=== PATIENT | male | born 1960 | race Caucasian/White ===

== ENCOUNTER 2018-08-18 12:46 | Emergency (ER) | payer MEDICARE, OTHER ==
[~2018-08-18] VITALS: Ht 182.9 cm; Wt 81.8 kg
[~2018-08-18 12:46] MED LIST: /ADVA50050; /MOXI40TA; /TIOT18INH; ACET65TA; BABY81CH; CEPACOL; No Historical Meds; PRED20TA; REME15TA; TRAZ50TA; TUMS500C; combivent
[2018-08-18 13:28] LABS: BASO % 0.6 % (0.0-1.0); EOS # 0.3 10^3/uL (0.0-0.50); EOS % 4.8 % (0.0-3.0); HEMATOCRIT 43.3 % (42.0-52.0); HEMOGLOBIN 14.4 g/dl (13.5-17.5); LYMPH % 29.3 % (24.0-44.0); MEAN CORPUSCULAR HEMOGLOBIN 30.4 pg (27.0-33.0); MEAN CORPUSCULAR HGB CONC 33.3 g/dl (32.0-36.5); MEAN CORPUSCULAR VOLUME 91.4 fl (80.0-96.0); MONO # 0.7 10^3/uL (0.0-0.8); MONO % 9.8 % (0.0-5.0); NEUTROPHILS # 3.8 10^3/uL (1.8-7.7); NEUTROPHILS % 55.1 % (36.0-66.0); PLATELET COUNT, AUTOMATED 303 10^3/uL (150-450); RED BLOOD COUNT 4.74 10^6/uL (4.30-6.10); WHITE BLOOD COUNT 6.9 10^3/uL (4.0-10.0)
[2018-08-18 13:40] LABS: PROTHROMBIN TIME 13.3 SECONDS (12.1-14.4)
[2018-08-18 13:41] LABS: PARTIAL THROMBOPLASTIN TIME 28.5 SECONDS (25.4-37.6)
[2018-08-18 14:01] LABS: ALBUMIN 4.2 GM/DL (3.2-5.2); ALT/SGPT 23 U/L (12-78); BILIRUBIN,DIRECT 0.2 MG/DL (0.0-0.2); BILIRUBIN,TOTAL 0.5 MG/DL (0.2-1.0); BLOOD UREA NITROGEN 12 MG/DL (7-18); CALCIUM LEVEL 8.8 MG/DL (8.5-10.1); CARBON DIOXIDE LEVEL 29 MEQ/L (21-32); CHLORIDE LEVEL 106 MEQ/L (98-107); CK-MB VALUE MASS < 1.0 NG/ML (<3.6); CPK CREATINE PHOSPHOKINASE 77 U/L (39-308); CREATININE FOR GFR 0.99 MG/DL (0.70-1.30); FREE T4 1.12 NG/DL (0.76-1.46); GLOMERULAR FILTRATION RATE > 60.0 (>56); GLUCOSE, FASTING 84 MG/DL (70-100); LIPASE 199 U/L (73-393); POTASSIUM SERUM 4.7 MEQ/L (3.5-5.1); SODIUM LEVEL 140 MEQ/L (136-145); TOTAL PROTEIN 7.2 GM/DL (6.4-8.2); TROPONIN I < 0.02 NG/ML (< 0.10)
--- NOTE | 2018-08-18 14:01 | REP ---
CHEST X-RAY: Two views. HISTORY: Chest pain. COMPARISON STUDY: November 03, 2012. FINDINGS: There is a pleural-based nodular opacity at the left apex 2.6 cm in greatest diameter which is unchanged from prior studies done in 2012. It is fairly well visible on the lower cuts from the cervical spine CT study November 03, 2012. There are surgical clips in the left subclavicular region. There are large bullae in the upper lobes bilaterally unchanged from multiple prior radiographs. Heart is not enlarged. EKG electrodes are seen. Pleural angles are sharp. No significant bony abnormality is seen. IMPRESSION: Bilateral upper lobe bullous change consistent with emphysema. Stable 2.6 cm nodular density in the left apex unchanged. No acute disease. Electronically Signed by Haja Fernández MD 08/18/2018 06:26 P
[2018-08-18 14:23] LABS: C REACTIVE PROTEIN QUANTITATIV < 0.30 MG/DL (0.00-0.30)
[2018-08-18 14:51] LABS: ERYTHROCYTE SEDIMENTATION RATE 5 mm/hr (0-20)
[2018-08-18] MEDS ORDERED: ASPI1TAB PO (16:05)
[2018-08-18 16:16] VITALS: BP 152/76
--- NOTE | 2018-08-18 18:50 | ECGEPIP ---
Stationary ECG Study [facility] - ED Test Date: 2018-08-18 Pat Name: BRENNEN LAUREN JR Department: Room: - Gender: M [employer] Operator: : 1960 Requested By: ERIN Bishop Order Number: [id number] Reading MD: Daniel Kc Measurements Intervals [place] Rate: 56 P: 38 ID: [id number] QRS: 11 QRSD: 104 T: 41 QT: 407 QTc: 394 Interpretive Statements SINUS BRADYCARDIA Electronically Signed On 08-18-2018 18:49:44 EST by Daniel Kc
--- NOTE | 2018-08-20 11:05 | ED PDOC ---
Post-Departure Follow-Up dr bob faxed formal report of cxr for fu Amy Pfeiffer MD Aug 20, 2018 11:05
== END 2018-08-18 16:18 | disposition home or self-care (01) ==
LOC: M ED 12:46
DX: G54.0 Brachial plexus disorders (principal); R00.1 Bradycardia, unspecified; F31.9 Bipolar disorder, unspecified; Z87.891 Personal history of nicotine dependence; Z79.82 Long term (current) use of aspirin

== ENCOUNTER 2021-06-13 15:31 | Emergency (ER) | payer MEDICARE ==
[~2021-06-13] VITALS: Ht 185.4 cm; Wt 82.9 kg
[~2021-06-13 15:31] MED LIST changes: -/ADVA50050; -/MOXI40TA; -/TIOT18INH; +ADVA1AER2; +ASPI81TA26 PO; +AVEL1TAB2; +SPIR1CAP
--- NOTE | 2021-06-13 17:35 | REP ---
INDICATION: covid COMPARISON: 08/18/2018 TECHNIQUE: Portable AP view of the chest FINDINGS: COPD/emphysematous changes are noted. Cardiac silhouette is normal. No consolidation, effusion, or pneumothorax. Skeletal structures are intact. IMPRESSION: Chronic emphysematous disease. No acute cardiopulmonary process appreciated. <Electronically signed by Be Flores > 06/13/21 [id number]
[2021-06-13 18:04] VITALS: BP 145/79
--- NOTE | 2021-06-14 15:55 | ECGEPIP ---
[facility] - ED Test Date: 2021-06-13 Pat Name: BRENNEN LAUREN Department: Room: - Gender: Male [employer] Superintendent: ED : 1960 Requested By: Marielle Clifton Order Number: [id number] Reading MD: Marielle Clifton Measurements Intervals [place] Rate: 59 P: 84 [place]: 142 QRS: 11 QRSD: 90 T: 34 QT: 428 QTc: 423 Interpretive Statements Sinus bradycardia with sinus arrhythmia baseline artifact may affect interpretation similar 08/18/18 Electronically Signed on 06-14-2021 15:54:31 EST by Marielle Clifton
== END 2021-06-13 18:09 | disposition home or self-care (01) ==
LOC: M ED 15:31
DX: U07.1 COVID-19 (principal); R00.1 Bradycardia, unspecified; J44.9 Chronic obstructive pulmonary disease, unspecified; I48.91 Unspecified atrial fibrillation; F31.9 Bipolar disorder, unspecified

== ENCOUNTER 2021-06-17 11:20 | Outpatient (CLI) | payer MEDICARE ==
[~2021-06-17] VITALS: Ht 185.4 cm; Wt 79.0 kg
[~2021-06-17 11:20] MED LIST changes: +ACETAMINOPHEN TAB 650MG DOSE (2X325MG) PO PRN; +ALBUTEROL 90 MCG/ACT 8GM HFA INHALER INH PRN; +ALBUTEROL SULFATE 2.5 MG/0.5 ML INH NEB SOLN INH PRN; +CASIRIVIMAB/IMDEVIMAB 1,200 MG in NS 250 ML IV ONE; +EPINEPHrine INJ 1 MG/ML 1ML AMP IM PRN; +NS 1,000 ML IV SCH; +diphenhydrAMINE 50MG/ML VIAL (J1200) IV PRN; +methylPREDNISolone 125MG 2ML VIAL IV PRN
[2021-06-17 11:56] VITALS: BP 154/79
[2021-06-17 12:26] VITALS: BP 131/70
[2021-06-17 12:56] VITALS: BP 134/70
[2021-06-17 13:56] VITALS: BP 147/71
== END 2021-06-17 13:56 | disposition home or self-care (01) ==
LOC: M OPCLI4PR 11:20
PROVIDERS: ATTEND Physician Assistant
DX: U07.1 COVID-19 (principal)

== ENCOUNTER 2021-07-09 04:35 | Emergency (ER) | payer MEDICARE, OTHER ==
[~2021-07-09] VITALS: Ht 185.4 cm; Wt 84.3 kg
[~2021-07-09 04:35] MED LIST changes: -ACETAMINOPHEN TAB 650MG DOSE (2X325MG) PO PRN; -ALBUTEROL 90 MCG/ACT 8GM HFA INHALER INH PRN; -ALBUTEROL SULFATE 2.5 MG/0.5 ML INH NEB SOLN INH PRN; -CASIRIVIMAB/IMDEVIMAB 1,200 MG in NS 250 ML IV ONE; -EPINEPHrine INJ 1 MG/ML 1ML AMP IM PRN; -NS 1,000 ML IV SCH; -diphenhydrAMINE 50MG/ML VIAL (J1200) IV PRN; -methylPREDNISolone 125MG 2ML VIAL IV PRN
[2021-07-09] MEDS ORDERED: BACI500O21 TOP (05:18)
[2021-07-09] MEDS ORDERED: CEPH500T PO (05:18)
[2021-07-09 05:51] VITALS: BP 138/98
== END 2021-07-09 05:55 | disposition home or self-care (01) ==
LOC: M ED 04:35
DX: L03.114 Cellulitis of left upper limb (principal); L03.113 Cellulitis of right upper limb; T33.521A Superficial frostbite of right hand, initial encounter; T33.522A Superficial frostbite of left hand, initial encounter; I48.91 Unspecified atrial fibrillation; J44.9 Chronic obstructive pulmonary disease, unspecified; F17.200 Nicotine dependence, unspecified, uncomplicated; F31.9 Bipolar disorder, unspecified; Y92.009 Unspecified place in unspecified non-institutional (private) residence as the place of occurrence of the external cause; Y93.9 Activity, unspecified; Y99.9 Unspecified external cause status

== ENCOUNTER 2021-09-28 15:57 | Emergency (ER) | payer MEDICARE ==
[~2021-09-28] VITALS: Ht 182.9 cm; Wt 89.9 kg
[~2021-09-28 15:57] MED LIST changes: +BACI500O21 TOP; +CEPH500T PO
[2021-09-28] MEDS ORDERED: QUET100T2 PO (16:02)
[2021-09-28] MEDS ORDERED: DIVA500T94 PO (16:02)
[2021-09-28] MEDS ORDERED: HYDR12CA PO (17:31)
[2021-09-28 20:34] LABS: BASO # 0.1 10^3/uL (0.0-0.2); BASO % 0.9 % (0.0-1.0); EOS # 0.6 10^3/uL (0.0-0.5); EOS % 5.6 % (0.0-3.0); HEMATOCRIT 39.9 % (42.0-52.0); HEMOGLOBIN 12.6 g/dl (13.5-17.5); LYMPH # 2.4 10^3/uL (1.5-5.0); LYMPH % 22.2 % (24.0-44.0); MEAN CORPUSCULAR HEMOGLOBIN 31.3 pg (27.0-33.0); MEAN CORPUSCULAR HGB CONC 31.6 g/dl (32.0-36.5); MONO # 1.3 10^3/uL (0.0-0.8); MONO % 12.3 % (2.0-8.0); NEUTROPHILS # 6.3 10^3/uL (1.5-8.5); NEUTROPHILS % 57.6 % (36.0-66.0); PLATELET COUNT, AUTOMATED 279 10^3/uL (150-450); RED BLOOD COUNT 4.03 10^6/uL (4.30-6.10); WHITE BLOOD COUNT 10.9 10^3/uL (4.0-10.0)
[2021-09-28] MEDS ORDERED: ISOVUE-370 76% 100ML VIAL As Ordered ONE (21:02)
[2021-09-28 21:07] LABS: CK-MB VALUE MASS 1.7 NG/ML (<3.6); MB/CK RELATIVE INDEX 1.03 (< OR =4)
[2021-09-28 21:19] LABS: ALBUMIN 3.6 GM/DL (3.2-5.2); BILIRUBIN,DIRECT 0.1 MG/DL (0.0-0.2); BILIRUBIN,TOTAL 0.2 MG/DL (0.2-1.0); TOTAL PROTEIN 6.7 GM/DL (6.4-8.2)
[2021-09-28 21:57] LABS: RSV AMPLIFICATION NEGATIVE (NEGATIVE)
[2021-09-28] MEDS ORDERED: FUROSEMIDE 20 MG TAB PO ONE (23:00)
[2021-09-28 23:07] VITALS: BP 140/63
[2021-09-28] MEDS ORDERED: LASI20TA3 PO (23:56)
== END 2021-09-29 00:07 | disposition home or self-care (01) ==
LOC: M ED 15:57
DX: R22.43 Localized swelling, mass and lump, lower limb, bilateral (principal); I10 Essential (primary) hypertension; Z76.0 Encounter for issue of repeat prescription; R79.1 Abnormal coagulation profile; R79.89 Other specified abnormal findings of blood chemistry; R00.1 Bradycardia, unspecified; J94.8 Other specified pleural conditions; I48.91 Unspecified atrial fibrillation; R56.9 Unspecified convulsions; J44.9 Chronic obstructive pulmonary disease, unspecified; Z87.891 Personal history of nicotine dependence; Z79.899 Other long term (current) drug therapy
CPT/HCPCS: 36415; 71046; 71275; 80047; 80076; 82550; 82553; 83690; 83880; 84484; 85025; 85379; 87631; 93005; 93970; 99284; Q9967

== ENCOUNTER → 2022-03-03 | Outpatient (REF) | payer MEDICARE ==
[~2022-03-03] MED LIST changes: +DIVA500T94 PO; +HYDR12CA PO; +LASI20TA3 PO; +QUET100T2 PO
== END ==
LOC: M LAB REF 16:43
PROVIDERS: ATTEND Surgery
DX: L72.11 Pilar cyst (principal)

== ENCOUNTER → 2022-03-10 | Outpatient (CLI) | payer MEDICARE | LOC: M RAD 08:59 | PROVIDERS: ATTEND Specialist | DX: M89.8X0 Other specified disorders of bone, multiple sites (principal) | CPT/HCPCS: 78306; A9503 ==

== ENCOUNTER → 2022-03-19 | Outpatient (CLI) | payer MEDICARE | LOC: M RAD 11:11 | PROVIDERS: ATTEND Specialist | DX: M85.9 Disorder of bone density and structure, unspecified (principal) ==

== ENCOUNTER → 2022-04-25 | Outpatient (CLI) | payer MEDICARE ==
[~2022-04-25] MED LIST changes: +ECOT81TA5 PO
== END ==
LOC: M LABSMTC 10:36
PROVIDERS: ATTEND Anesthesiology
DX: Z01.812 Encounter for preprocedural laboratory examination (principal); Z20.822 Contact with and (suspected) exposure to COVID-19

== ENCOUNTER 2022-04-29 07:44 | Day surgery (SDC) | payer MEDICARE ==
[~2022-04-29] VITALS: Ht 182.9 cm; Wt 82.6 kg
[~2022-04-29 07:44] MED LIST changes: +NS 1,000 ML IV ONE
[2022-04-29] MEDS ORDERED: MIDAZOLAM INJ 2MG/2ML VIAL (J2250 PER 1MG) As Ordered ONE (08:50)
[2022-04-29] MEDS ORDERED: propofoL 200 MG/20 ML VIAL As Ordered ONE ×3 (08:50→09:27)
[2022-04-29] MEDS ORDERED: LIDOCAINE 2% 100MG/5ML SDV (FOR ANES.) As Ordered ONE (08:50)
[2022-04-29 10:15] VITALS: BP 119/73
== END 2022-04-29 10:21 | disposition home or self-care (01) ==
LOC: M OPP 07:44
PROVIDERS: ATTEND Surgery
DX: Z12.11 Encounter for screening for malignant neoplasm of colon (principal); D12.6 Benign neoplasm of colon, unspecified; K57.30 Diverticulosis of large intestine without perforation or abscess without bleeding; Z79.82 Long term (current) use of aspirin; Z79.899 Other long term (current) drug therapy; I48.91 Unspecified atrial fibrillation; M19.90 Unspecified osteoarthritis, unspecified site; F31.9 Bipolar disorder, unspecified; J44.9 Chronic obstructive pulmonary disease, unspecified; Z87.891 Personal history of nicotine dependence; Z86.19 Personal history of other infectious and parasitic diseases
CPT/HCPCS: 45385; 88305; J2250

== ENCOUNTER → 2022-09-09 | Outpatient (REF) | payer MEDICARE ==
[~2022-09-09] MED LIST changes: -NS 1,000 ML IV ONE
[2022-09-09 19:20] LABS: BLOOD UREA NITROGEN 19 MG/DL (9-23); CALCIUM LEVEL 9.4 MG/DL (8.3-10.6); CARBON DIOXIDE LEVEL 29 MMOL/L (20-31); CHLORIDE LEVEL 102 MMOL/L (98-107); CHOLESTEROL LEVEL 182 MG/DL (<200); CREATININE FOR GFR 1.12 MG/DL (0.70-1.30); GLOMERULAR FILTRATION RATE > 60.0 (>49); GLUCOSE, FASTING 74 MG/DL (74-106); HDL CHOLESTEROL 38.7 MG/DL (>40); LDL CHOLESTEROL 119.1 MG/DL (<100); NON-HDL-C 143.3 MG/DL; POTASSIUM SERUM 4.8 MMOL/L (3.5-5.1); SODIUM LEVEL 139 MMOL/L (136-145); TRIGLYCERIDES LEVEL 121 MG/DL (<150)
== END ==
LOC: M LAB REF 17:22
PROVIDERS: ATTEND Nurse Practitioner Family
DX: R60.0 Localized edema (principal); E66.9 Obesity, unspecified

== ENCOUNTER 2022-10-17 20:04 | Emergency (ER) | payer MEDICARE ==
[~2022-10-17] VITALS: Ht 182.9 cm; Wt 87.7 kg
[2022-10-17 20:05] VITALS: BP 144/90
[2022-10-17] MEDS ORDERED: CEPHALEXIN 500 MG CAP PO ONE (21:20)
[2022-10-17] MEDS ORDERED: LIDOCAINE 1% MDV 20ML VIAL SC ONE (21:20)
[2022-10-17] MEDS ORDERED: BOOSTRIX VACCINE (TETANUS/DIPHTH/ACEL. PERTUSSIS) 0.5ML SYR IM ONE (21:40)
[2022-10-17] MEDS ORDERED: CEPH500C PO (21:58)
== END 2022-10-17 22:43 | disposition home or self-care (01) ==
LOC: M ED 20:04
DX: S61.211A Laceration without foreign body of left index finger without damage to nail, initial encounter (principal); J44.9 Chronic obstructive pulmonary disease, unspecified; F31.9 Bipolar disorder, unspecified; Z87.891 Personal history of nicotine dependence; Y92.009 Unspecified place in unspecified non-institutional (private) residence as the place of occurrence of the external cause; Y93.H3 Activity, building and construction; Z23 Encounter for immunization

== ENCOUNTER 2022-11-12 06:02 | Day surgery (SDC) | payer MEDICARE ==
[~2022-11-12] VITALS: Ht 185.4 cm; Wt 86.2 kg
[~2022-11-12 06:02] MED LIST changes: +CEPH500C PO; +MULT-90 PO
[2022-11-12] MEDS ORDERED: ceFAZolin SOD 2 GM in IV 1 EA IV ONE (06:10)
[2022-11-12] MEDS ORDERED: LR 1,000 ML IV SCH (06:40)
[2022-11-12] MEDS ORDERED: BUPIVACAINE/EPIN 0.25% 30ML VIAL As Ordered ONE (07:07)
[2022-11-12] MEDS ORDERED: ONDANSETRON 4MG 2ML VIAL As Ordered ONE (07:08)
[2022-11-12] MEDS ORDERED: MIDAZOLAM INJ 2MG/2ML VIAL As Ordered ONE (07:08)
[2022-11-12] MEDS ORDERED: LIDOCAINE 2% 100MG/5ML SDV (FOR ANES.) As Ordered ONE (07:08)
[2022-11-12] MEDS ORDERED: fentaNYL 100 MCG/2 ML INJECTION As Ordered ONE (07:08)
[2022-11-12] MEDS ORDERED: propofoL 200 MG/20 ML VIAL As Ordered ONE (07:08)
[2022-11-12] MEDS ORDERED: diphenhydrAMINE 50MG/ML VIAL As Ordered ONE (08:27)
[2022-11-12 09:00] VITALS: BP 118/70; TEMP 97; O2SAT 99
== END 2022-11-12 09:00 | disposition home or self-care (01) ==
LOC: M SDC 06:02
PROVIDERS: ATTEND Surgery
DX: D17.1 Benign lipomatous neoplasm of skin and subcutaneous tissue of trunk (principal); I48.0 Paroxysmal atrial fibrillation; Z79.899 Other long term (current) drug therapy; R91.1 Solitary pulmonary nodule; J43.9 Emphysema, unspecified; Z86.19 Personal history of other infectious and parasitic diseases; F31.9 Bipolar disorder, unspecified; Z87.891 Personal history of nicotine dependence; E66.3 Overweight; R60.0 Localized edema
CPT/HCPCS: 11402; 11404; 11406; 88304; J0690; J1100; J1200; J2250; J2405; J3010

== ENCOUNTER → 2022-12-22 | Outpatient (REF) | payer MEDICARE | LOC: M LAB REF 17:55 | PROVIDERS: ATTEND Surgery | DX: D17.1 Benign lipomatous neoplasm of skin and subcutaneous tissue of trunk (principal) ==

== ENCOUNTER → 2023-02-22 | Outpatient (REF) | payer MEDICARE ==
[2023-02-22 12:23] LABS: BASO # 0.1 10^3/uL (0.0-0.2); BASO % 1.1 % (0.0-1.0); EOS # 0.3 10^3/uL (0.0-0.5); EOS % 5.4 % (0.0-3.0); HEMATOCRIT 42.4 % (42.0-52.0); HEMOGLOBIN 13.6 g/dl (13.5-17.5); LYMPH # 1.6 10^3/uL (1.5-5.0); LYMPH % 25.3 % (24.0-44.0); MEAN CORPUSCULAR HGB CONC 32.1 g/dl (32.0-36.5); MEAN CORPUSCULAR VOLUME 93.6 fl (80.0-96.0); MONO # 0.7 10^3/uL (0.0-0.8); NEUTROPHILS # 3.4 10^3/uL (1.5-8.5); NEUTROPHILS % 55.4 % (36.0-66.0); PLATELET COUNT, AUTOMATED 382 10^3/uL (150-450); RED BLOOD COUNT 4.53 10^6/uL (4.30-6.10); WHITE BLOOD COUNT 6.2 10^3/uL (4.0-10.0)
[2023-02-22 12:46] LABS: HEMOGLOBIN A1c 5.2 % (4.0-6.0)
[2023-02-22 12:47] LABS: BLOOD UREA NITROGEN 11 MG/DL (9-23); CARBON DIOXIDE LEVEL 30 MMOL/L (20-31); CHLORIDE LEVEL 106 MMOL/L (98-107); CHOLESTEROL LEVEL 156 MG/DL (<200); CHOLESTEROL RISK RATIO 4.38 (<5); CREATININE FOR GFR 0.95 MG/DL (0.70-1.30); GLOMERULAR FILTRATION RATE > 60.0 (>49); GLUCOSE, FASTING 97 MG/DL (74-106); HDL CHOLESTEROL 35.6 MG/DL (>40); LDL CHOLESTEROL 104.8 MG/DL (<100); NON-HDL-C 120.4 MG/DL; POTASSIUM SERUM 4.4 MMOL/L (3.5-5.1); SODIUM LEVEL 143 MMOL/L (136-145); TRIGLYCERIDES LEVEL 78 MG/DL (<150)
[2023-02-22 12:49] LABS: THYROID STIMULATING HORMONE 2.462 uIU/ML (0.55-4.78)
== END ==
LOC: M WUC 11:40
PROVIDERS: ATTEND Nurse Practitioner Family
DX: E66.3 Overweight (principal); Z85.79 Personal history of other malignant neoplasms of lymphoid, hematopoietic and related tissues; R60.0 Localized edema; Z79.899 Other long term (current) drug therapy

== ENCOUNTER → 2023-04-21 | Outpatient (CLI) | payer OTHER | LOC: M RAD 06:29 | PROVIDERS: ATTEND Physician Assistant Medical | DX: R10.11 Right upper quadrant pain (principal) ==

== ENCOUNTER → 2025-03-08 | Outpatient (CLI) | payer MEDICARE ==
[~2025-03-08] MED LIST changes: +DIVA-41 PO; -DIVA500T94 PO; +HYDR12.510 PO; -HYDR12CA PO
[2025-03-08 15:05] LABS: ALT/SGPT 11.0 U/L (7.0-40); AST/SGOT 17.0 U/L (<34); CALCIUM LEVEL 9.0 MG/DL (8.3-10.6); CARBON DIOXIDE LEVEL 30.0 MMOL/L (20-31); CHLORIDE LEVEL 107.0 MMOL/L (98-107); CHOLESTEROL LEVEL 157.0 MG/DL (<200); CHOLESTEROL RISK RATIO 4.02 (<5); CREATININE FOR GFR 1.09 MG/DL (0.70-1.30); GLOMERULAR FILTRATION RATE 75.3 (>49); LDL CHOLESTEROL 103.4 MG/DL (<100); NON-HDL-C 118.0 MG/DL; POTASSIUM SERUM 4.5 MMOL/L (3.5-5.1); SODIUM LEVEL 142.0 MMOL/L (136-145); TRIGLYCERIDES LEVEL 73.0 MG/DL (<150)
== END ==
LOC: M WUC 08:04
PROVIDERS: ATTEND Student in an Organized Health Care Education/Training Program
DX: F31.9 Bipolar disorder, unspecified (principal); Z79.899 Other long term (current) drug therapy

== ENCOUNTER → 2025-03-11 | Outpatient (REF) | payer MEDICARE ==
[2025-03-11 14:05] LABS: BASO # 0.1 10^3/uL (0.0-0.2); BASO % 0.8 % (0.0-1.0); EOS # 0.3 10^3/uL (0.0-0.5); EOS % 4.4 % (0.0-3.0); LYMPH # 1.7 10^3/uL (1.5-5.0); LYMPH % 26.8 % (24.0-44.0); MONO # 0.6 10^3/uL (0.0-0.8); MONO % 8.8 % (2.0-8.0); NEUTROPHILS # 3.8 10^3/uL (1.5-8.5); NEUTROPHILS % 58.9 % (36.0-66.0); PLATELET COUNT, AUTOMATED 268 10^3/uL (150-450)
[2025-03-11 14:16] LABS: ESTIMATED AVERAGE GLUCOSE 117.0 MG/DL (60-110)
== END ==
LOC: M LAB REF 11:53 → M LABWUC 11:53
PROVIDERS: ATTEND Student in an Organized Health Care Education/Training Program
DX: F31.9 Bipolar disorder, unspecified (principal)